=== PATIENT | female | born 1960 | race Caucasian/White ===

== ENCOUNTER 2019-06-07 21:31 | Emergency (ER) | payer OTHER ==
[~2019-06-07] VITALS: Ht 167.6 cm; Wt 79.4 kg
[~2019-06-07 21:31] MED LIST: ASPI-1718 PO; METF500T PO
[2019-06-07 21:38] VITALS: BP 150/79
--- NOTE | 2019-06-07 21:38 | NUR ---
TO LOBBY A/W BED , AMBULATORY
--- NOTE | 2019-06-07 22:49 | NUR ---
Mac laguna in [facility] - 06/07/19 at 2302 by TRACY PT TAKEN TO BED 4
--- NOTE | 2019-06-07 22:50 | NUR ---
PT AMBULATED TO ED BED 04
--- NOTE | 2019-06-07 23:10 | NUR ---
58 YO F BIB SELF AND C/O 9/10 BILATERAL LOWER QUADRANT PAIN ACCOMPANIED BY N/V SINCE YESTERDAY. PT STATES "I CAN'T GO TO THE BATHROOM." PT STATES SHE HAD SMALL, HARD BM TODAY X 1. LAST FULL, NORMAL BM WAS YESTERDAY. DENIES FEVER, DIARRHEA. -- PT AWAKE, A/O X4, CALM, COOPERTAIVE. APPEARS UNCOMFORTABLE. ANSWERING QUESTIONS APPROPRIATELY. BEHAVIOR AGE APPROPRIATE. -- SKIN PINK, WARM, DRY. BREATHING EVEN, UNLABORED. PMH-- HTN, DM, HIGH CHOLESTEROL
[2019-06-07 23:11] LABS: APPEARANCE,URINE CLEAR (CLEAR); BILIRUBIN,URINE NEGATIVE (NEGATIVE); BLOOD, URINE TRACE-I (NEGATIVE); COLOR,URINE YELLOW (YELLOW); LEUKOCYTE ESTERASE ,URINE NEGATIVE (NEGATIVE); NITRITE, URINE NEGATIVE (NEGATIVE); PH,URINE 7.5 (5.0-9.0); UGLUCOSE NEGATIVE (NEGATIVE)
--- NOTE | 2019-06-07 23:13 | NUR ---
Dr. Bland examining patient.
[2019-06-07] MEDS ORDERED: NACL 0.9% 1,000 ML IV SCH (23:28)
[2019-06-07] MEDS ORDERED: MORPHINE SULFATE 4 MG/ML SYR IVP ONE (23:30)
[2019-06-07] MEDS ORDERED: ONDANSETRON 4 MG/2 ML VIAL IVP ONE (23:30)
[2019-06-08 00:03] LABS: BASOPHILS % (AUTO) 0.3 % (0.0-2.0); EOSINOPHILS # (AUTO) 0.1 K/uL (0-0.4); EOSINOPHILS % (AUTO) 0.9 % (0.0-4.0); HEMATOCRIT 42.9 % (36-48); LYMPHOCYTES # (AUTO) 1.3 K/uL (2.5-16.5); LYMPHOCYTES % (AUTO) 16.9 % (20.5-51.1); MEAN CORPUSCULAR HEMOGLOBIN 35 pg (27-31); MEAN CORPUSCULAR HGB CONC 35 g/dL (33-37); MEAN CORPUSCULAR VOLUME 100.4 fL (80-94); MONOCYTES # (AUTO) 0.5 K/uL (0.8-1.0); MONOCYTES % (AUTO) 5.8 % (1.7-9.3); NEUTROPHILS # (AUTO) 6.1 K/uL (1.8-7.7); NEUTROPHILS % (AUTO) 76.1 % (42.2-75.2); PLATELET COUNT (AUTO) 199 K/uL (140-450); RED BLOOD CELL COUNT(AUTO) 4.27 MIL/uL (4.20-5.40); RED CELL DISTRIBUTION WIDTH 12.2 % (11.6-13.7)
[2019-06-08 00:14] LABS: WBC,URINE 0-5 /HPF (0-5)
[2019-06-08 00:25] LABS: CARBON DIOXIDE 28.8 mmol/L (21-32); CREATININE 0.6 mg/dL (0.6-1.3); POTASSIUM 3.8 mmol/L (3.5-5.1)
[2019-06-08 00:31] LABS: ALBUMIN 3.8 g/dL (3.4-5.0); TOTAL BILIRUBIN 0.5 mg/dL (0.0-1.0)
--- NOTE | 2019-06-08 00:45 | NUR ---
PT AMBULATED TO WITH STEADY GAIT.
[2019-06-08] MEDS ORDERED: NACL 0.9% 1,000 ML IV ONE (00:50)
--- NOTE | 2019-06-08 00:55 | NUR ---
PT RESTING COMFORTABLY IN BED. PT STATES PAIN DECREASED TO 5/10 AND FEELS MUCH BETTER. SKIN PINK, WARM, DRY. BREATHING EVEN, UNLABORED.
--- NOTE | 2019-06-08 02:30 | NUR ---
PT SLEEPING COMFORTABLY IN BED WITH VSS. AROUSABLE TO VERBAL STIMULI. SKIN PINK, WARM, DRY. BREATHING EVEN, UNLABORED.
--- NOTE | 2019-06-08 03:30 | NUR ---
PT SLEEPING COMFORTABLY IN BED WITH VSS. AROUSABLE TO VERBAL STIMULI. SKIN PINK, WARM, DRY. BREATHING EVEN, UNLABORED.
--- NOTE | 2019-06-08 04:22 | NUR ---
[facility] AT BEDSIDE
--- NOTE | 2019-06-08 04:30 | NUR ---
REPORT GIVEN TO SENG GRAJEDA. PT AMBULATED TO [facility] WITH STEADY GAIT AND VSS. SKIN PINK, WARM, DRY. BREATHING EVEN, UNLABORED.
[2019-06-08 04:33] VITALS: BP 126/71
--- NOTE | 2019-06-08 04:33 | NUR ---
PT TAKEN BY [facility] TO [facility] ROOM 204
--- NOTE | 2019-06-08 04:42 | NUR ---
CALLED [facility] [place] TO GIVE REPORT; WAS TOLD THEY WOULD CALL BACK TO GET REPORT.
--- NOTE | 2019-06-08 04:49 | NUR ---
Patient to be transferred to [facility]. Is being transferred due to insurance/continuation of care. Receiving facility has accepting physician and available space. ER physician has signed transfer form. Patient or responsible constitution party has agreed to transfer and signed form. Patient belongings inventoried and will be sent with patient. Copy of nursing notes, lab reports, EKG, Physicians Orders and X-rays to be sent with patient. Report called to PAWAN Candelaria at receiving facility. [facility] ambulance service has picked up pt.
--- NOTE | 2019-06-09 07:58 | NUR ---
Late entry. Confirmed with RN that 1000ml 0.9 NS IV completed at 0200.
== END 2019-06-08 04:33 | disposition short-term general hospital (02) ==
LOC: MED 21:31
DX: K85.90 Acute pancreatitis without necrosis or infection, unspecified (principal); J44.9 Chronic obstructive pulmonary disease, unspecified; E11.9 Type 2 diabetes mellitus without complications; I10 Essential (primary) hypertension; F17.200 Nicotine dependence, unspecified, uncomplicated; Z79.82 Long term (current) use of aspirin; Z79.84 Long term (current) use of oral hypoglycemic drugs
CPT/HCPCS: 36415; 74176; 80053; 81001; 82150; 83690; 85025; 96361; 96374; 96375; 99285; J2270; J2405; J7030

== ENCOUNTER 2023-05-14 20:21 | Emergency (ER) | payer OTHER ==
[~2023-05-14] VITALS: Ht 167.6 cm; Wt 74.8 kg
[~2023-05-14 20:21] MED LIST changes: -ASPI-1718 PO; +ASPI-1822 PO; +METF-346 PO; -METF500T PO
[2023-05-14 20:57] VITALS: BP 136/96; PULSE 92; RESP 18; TEMP 98.4; O2SAT 99
[2023-05-14 21:34] LABS: BASOPHILS % (AUTO) 0.3 % (0.0-2.0); EOSINOPHILS % (AUTO) 0.3 % (0.0-4.0); HEMATOCRIT 40.9 % (36-48); HEMOGLOBIN 14.2 g/dL (12.0-16.0); LYMPHOCYTES # (AUTO) 1.6 K/uL (2.5-16.5); MEAN CORPUSCULAR HEMOGLOBIN 34 pg (27-31); MEAN CORPUSCULAR HGB CONC 35 g/dL (33-37); MEAN CORPUSCULAR VOLUME 98.3 fL (80-94); MONOCYTES # (AUTO) 1.3 K/uL (0.8-1.0); MONOCYTES % (AUTO) 11.8 % (1.7-9.3); NEUTROPHILS # (AUTO) 7.8 K/uL (1.8-7.7); NEUTROPHILS % (AUTO) 72.6 % (42.2-75.2); PLATELET COUNT (AUTO) 190 K/uL (140-450); RED BLOOD CELL COUNT(AUTO) 4.16 MIL/uL (4.20-5.40); RED CELL DISTRIBUTION WIDTH 12.5 % (11.6-13.7); WHITE BLOOD COUNT (AUTO) 10.7 K/uL (4.8-10.8)
[2023-05-14 21:34] LABS: APPEARANCE,URINE CLEAR (CLEAR); BILIRUBIN,URINE NEGATIVE (NEGATIVE); BLOOD, URINE 2+ (NEGATIVE); COLOR,URINE YELLOW (YELLOW); LEUKOCYTE ESTERASE ,URINE NEGATIVE (NEGATIVE); NITRITE, URINE NEGATIVE (NEGATIVE); UGLUCOSE NEGATIVE (NEGATIVE)
[2023-05-14 21:49] LABS: ALBUMIN 3.4 g/dL (3.4-5.0); ANION GAP 12.7 (8-16); CARBON DIOXIDE 26.3 mmol/L (21-32); CREATININE 0.7 mg/dL (0.6-1.3); TOTAL BILIRUBIN 0.3 mg/dL (0.0-1.0)
[2023-05-14] MEDS ORDERED: KETOROLAC 30 MG/ML VIAL IVP ONE (22:35)
--- NOTE | 2023-05-14 22:39 | NUR ---
PT AMBULATORY TO BED 2
--- NOTE | 2023-05-14 23:06 | NUR ---
IV removed, catheter intact and site benign. Applied folded 4x4 gauze and tape to stop bleeding.
--- NOTE | 2023-05-14 23:07 | NUR ---
Patient does not wish to proceed with medical care recommended by Dr. Page. Patient given information related to possible complications, up to and including , which could occur as a result of leaving hospital at this time. Patient verbalizes understanding of risks involved leaving against medical advice. Patient has signed AMA form.
== END 2023-05-14 23:07 | disposition left against medical advice (07) ==
LOC: MED 20:21
DX: R10.31 Right lower quadrant pain (principal); R11.10 Vomiting, unspecified; R19.7 Diarrhea, unspecified
CPT/HCPCS: 36415; 80053; 81001; 83690; 85025; 96374; 99283; J1885

== ENCOUNTER 2024-05-13 12:34 | Emergency (ER) | payer OTHER ==
[~2024-05-13] VITALS: Ht 167.6 cm; Wt 76.0 kg
[2024-05-13 12:44] VITALS: BP 173/66; PULSE 114; RESP 18; TEMP 98.5; O2SAT 96
== END 2024-05-13 13:50 | disposition home or self-care (01) ==
LOC: MED 12:34
DX: I10 Essential (primary) hypertension (principal); F41.9 Anxiety disorder, unspecified; F10.10 Alcohol abuse, uncomplicated; F17.210 Nicotine dependence, cigarettes, uncomplicated; Z71.6 Tobacco abuse counseling; Z79.899 Other long term (current) drug therapy; Z79.82 Long term (current) use of aspirin; Y90.9 Presence of alcohol in blood, level not specified
CPT/HCPCS: 82948; 99282